=== PATIENT | female | born 1950 | race Caucasian/White ===

== ENCOUNTER 2021-07-13 16:03 | Inpatient (IN) | payer OTHER, BC ==
[2021-07-13] MEDS ORDERED: SODIUM CHLORIDE 0.9% 500 ML INFUS.BAG IV ONE ×2 (16:41→17:51)
[2021-07-13 16:52] LABS: BASO % 1.1 % (0-2.0); EOS % 0.6 % (0-4.5); HEMATOCRIT 40.6 % (32.4-45.2); HEMOGLOBIN 14.3 GM/dL (10.7-15.3); LYMPH % 24.7 % (8-40); MCH 31.6 pg (25.7-33.7); MCHC 35.2 g/dl (32.0-36.0); MEAN CELL VOLUME 89.9 fl (80-96); MEAN PLT VOLUME 7.8 fl (7.5-11.1); MONO % 6.9 % (3.8-10.2); NEUT % 66.7 % (42.8-82.8); PLATELET COUNT 408 10^3/uL (134-434); RBC 4.52 M/mm3 (3.60-5.2); RDW 14.1 % (11.6-15.6); WHITE BLOOD COUNT 9.8 K/mm3 (4.0-10.0)
[2021-07-13 17:13] LABS: CHLORIDE 86 mmol/L (98-107); SODIUM 135 mmol/L (136-145)
[2021-07-13 17:15] LABS: ALBUMIN 3.9 g/dl (3.4-5.0); BLOOD UREA NITROGEN 23.8 mg/dL (7-18); CALCIUM 7.4 mg/dL (8.5-10.1); CO2 37 mmol/L (21-32); GLUCOSE,RANDOM 134 mg/dL (74-106)
[2021-07-13 17:17] LABS: CREATININE 1.9 mg/dL (0.55-1.3); SGOT/AST 79 U/L (15-37); SGPT/ALT 110 U/L (13-61)
[2021-07-13 17:20] LABS: BILIRUBIN,TOTAL 0.6 mg/dL (0.2-1)
[2021-07-13 17:21] LABS: ALK PHOS 101 U/L (45-117)
[2021-07-13 17:23] LABS: N-TERMINAL BNP 699.1 pg/ml (5-125)
[2021-07-13 17:26] LABS: ANION GAP 12 MMOL/L (8-16)
[2021-07-13] MEDS ORDERED: POTASSIUM CHLORIDE TABS 20 MEQ TABLET.ER (FP) PO ONE ×4 (17:27→23:04)
[2021-07-13] MEDS ORDERED: KCL 10 MEQ IVPB 10 MEQ/100 ML INFUS.BAG IVPB ONE ×3 (17:29→19:38)
[2021-07-13] MEDS ORDERED: MAGNESIUM SULF 50% (8.12 MEQ/2 ML-1 GM VIAL) IVPB ONE (17:31)
[2021-07-13] MEDS: KCL 10 MEQ IVPB 10 MEQ/100 ML INFUS.BAG IVPB SCH ×3 (17:36→20:26)
[2021-07-13] MEDS ORDERED: ONDANSETRON 4 MG/2 ML VIAL IVPUSH ONE (17:53)
[2021-07-13] MEDS ORDERED: ONDANSETRON 4 MG/2 ML VIAL ONE (17:55)
[2021-07-13 20:34] LABS: CHLORIDE 89 mmol/L (98-107); SODIUM 135 mmol/L (136-145)
[2021-07-13 20:36] LABS: CALCIUM 7.1 mg/dL (8.5-10.1)
[2021-07-13 20:37] LABS: BLOOD UREA NITROGEN 23.5 mg/dL (7-18); CO2 33 mmol/L (21-32); GLUCOSE,RANDOM 115 mg/dL (74-106)
[2021-07-13 20:40] LABS: CREATININE 1.8 mg/dL (0.55-1.3)
[2021-07-13 20:52] LABS: EPI CELLS 31 /uL (0-25.1); HYALINE CASTS 8 /uL (0-3.1); URINE APPEARANCE CLEAR; URINE BACTERIA 96 /uL (0-1359); URINE BILIRUBIN NEGATIVE (NEGATIVE); URINE COLOR YELLOW; URINE GLUCOSE (UA) NEGATIVE (NEGATIVE); URINE KETONE NEGATIVE (NEGATIVE); URINE LEUK ESTERASE 1+ (NEGATIVE); URINE NITRITE NEGATIVE (NEGATIVE); URINE PROTEIN NEGATIVE (NEGATIVE); URINE RBC 8 /uL (0-23.9); URINE UROBILINOGEN 0.2 mg/dL (0.2-1.0); URINE WBC 18 /uL (0-25.8)
[2021-07-13 21:27] LABS: ANION GAP 13 MMOL/L (8-16)
[2021-07-13] MEDS ORDERED: CALCIUM GLUCONATE 10% - 1,000 MG in SODIUM CHLORIDE 100 ML IVPB ONE (23:00)
[2021-07-13] MEDS ORDERED: HEPARIN NA (PORCINE) 5,000 UNITS/ML 1ML VIAL ONE (23:05)
[2021-07-13] MEDS ORDERED: CALCIUM GLUCONATE 10% - 1,000 MG/10 ML VIAL ONE (23:05)
[2021-07-13 23:17] LABS: PHOSPHOROUS 4.7 mg/dL (2.5-4.9)
[2021-07-13] MEDS: HEPARIN NA (PORCINE) 5,000 UNITS/ML 1ML VIAL SQ SCH (23:26)
[2021-07-14] MEDS: KCL 10 MEQ IVPB 10 MEQ/100 ML INFUS.BAG IVPB SCH ×6 (00:51→21:58)
[2021-07-14] MEDS ORDERED: POTASSIUM CHLORIDE TABS 20 MEQ TABLET.ER (FP) PO ONE (01:52)
[2021-07-14] MEDS ORDERED: MECLIZINE HCL 25 MG TABLET (FP) PO PRN (02:08)
[2021-07-14] MEDS: HEPARIN NA (PORCINE) 5,000 UNITS/ML 1ML VIAL SQ SCH ×3 (06:23→21:58)
[2021-07-14 07:51] LABS: BASO % 0.7 % (0-2.0); EOS % 1.1 % (0-4.5); HEMATOCRIT 35.1 % (32.4-45.2); HEMOGLOBIN 12.2 GM/dL (10.7-15.3); LYMPH % 30.6 % (8-40); MCH 31.4 pg (25.7-33.7); MCHC 34.8 g/dl (32.0-36.0); MEAN CELL VOLUME 90.4 fl (80-96); MEAN PLT VOLUME 7.9 fl (7.5-11.1); MONO % 6.2 % (3.8-10.2); NEUT % 61.4 % (42.8-82.8); PLATELET COUNT 318 10^3/uL (134-434); RBC 3.88 M/mm3 (3.60-5.2); WHITE BLOOD COUNT 8.7 K/mm3 (4.0-10.0)
[2021-07-14 08:06] LABS: CHLORIDE 96 mmol/L (98-107); SODIUM 138 mmol/L (136-145)
[2021-07-14 08:12] LABS: ALBUMIN 3.3 g/dl (3.4-5.0); BLOOD UREA NITROGEN 20.9 mg/dL (7-18); CO2 31 mmol/L (21-32); GLUCOSE,RANDOM 101 mg/dL (74-106); MAGNESIUM 2.6 mg/dL (1.8-2.4)
[2021-07-14 08:13] LABS: CHOLESTEROL 152 mg/dL (50-200); TRIGLYCERIDES 113 mg/dL (0-150)
[2021-07-14 08:14] LABS: LDL CHOLESTEROL (ONLY SJRH) 93 mg/dL (5-100)
[2021-07-14 08:15] LABS: CREATININE 1.5 mg/dL (0.55-1.3); HDL CHOLESTEROL 40 mg/dL (40-60); SGOT/AST 50 U/L (15-37); SGPT/ALT 77 U/L (13-61); TOT PROT 6.8 g/dl (6.4-8.2)
[2021-07-14 08:17] LABS: ALK PHOS 81 U/L (45-117); BILIRUBIN,TOTAL 0.6 mg/dL (0.2-1)
[2021-07-14 08:28] LABS: ANION GAP 11 MMOL/L (8-16); CALCIUM 6.8 mg/dL (8.5-10.1)
[2021-07-14 08:29] LABS: INR 1.12 (0.83-1.09); PROTHROMBIN TIME (PATIENT) 12.9 SEC (9.7-13.0)
[2021-07-14] MEDS: FOLIC ACID 1 MG TABLET (FP) PO SCH (09:31)
[2021-07-14] MEDS: ASPIRIN COATED 81 MG TABLET.EC PO SCH (09:31)
[2021-07-14] MEDS: LEVOTHYROXINE NA 125 MCG TABLET (FP) PO SCH (09:31)
[2021-07-14] MEDS ORDERED: FOLIC ACID 0.8 MG PO SCH (10:00)
[2021-07-14] MEDS ORDERED: POTASSIUM CHLORIDE ORAL LIQUID 20 MEQ/15 ML PO SCH ×2 (10:00→23:00)
[2021-07-14] MEDS ORDERED: POTASSIUM CHLORIDE TABS 20 MEQ TABLET.ER (FP) PO SCH ×2 (10:00)
[2021-07-14] MEDS: FLUTICASONE/SALMETEROL 100 MCG/50 MCG DISKUS IH SCH ×2 (12:19→22:37)
[2021-07-14 15:56] VITALS: BMI 27.8
[2021-07-14] MEDS ORDERED: CALCIUM GLUCONATE IN NACL 1 GM/50 ML BAG IVPB ONE (16:16)
[2021-07-14] MEDS ORDERED: POTASSIUM CHLORIDE ORAL LIQUID 20 MEQ/15 ML PO ONE ×2 (18:45→22:00)
[2021-07-14 21:59] LABS: CHLORIDE 99 mmol/L (98-107); SODIUM 140 mmol/L (136-145)
[2021-07-14 22:00] LABS: ANION GAP 8 MMOL/L (8-16); BLOOD UREA NITROGEN 20.4 mg/dL (7-18); CO2 33 mmol/L (21-32); GLUCOSE,RANDOM 136 mg/dL (74-106)
[2021-07-14] MEDS ORDERED: DOXEPIN HCL 10 MG CAPSULE PO SCH (22:00)
[2021-07-14] MEDS ORDERED: KCL 10 MEQ IVPB 10 MEQ/100 ML INFUS.BAG IVPB SCH (22:00)
[2021-07-14 22:04] LABS: CREATININE 1.6 mg/dL (0.55-1.3)
[2021-07-14 22:22] LABS: CALCIUM 6.8 mg/dL (8.5-10.1)
[2021-07-15] MEDS: POTASSIUM CHLORIDE ORAL LIQUID 20 MEQ/15 ML PO SCH ×3 (02:30→21:07)
[2021-07-15] MEDS: HEPARIN NA (PORCINE) 5,000 UNITS/ML 1ML VIAL SQ SCH ×3 (06:17→21:07)
[2021-07-15] MEDS: LEVOTHYROXINE NA 125 MCG TABLET (FP) PO SCH (06:17)
[2021-07-15 06:56] LABS: HEMATOCRIT 32.7 % (32.4-45.2); HEMOGLOBIN 11.4 GM/dL (10.7-15.3); MCHC 34.9 g/dl (32.0-36.0); MEAN CELL VOLUME 91.6 fl (80-96); MEAN PLT VOLUME 7.7 fl (7.5-11.1); PLATELET COUNT 283 10^3/uL (134-434); RBC 3.56 M/mm3 (3.60-5.2); RDW 14.6 % (11.6-15.6); WHITE BLOOD COUNT 7.1 K/mm3 (4.0-10.0)
[2021-07-15 07:07] LABS: CHLORIDE 103 mmol/L (98-107); SODIUM 141 mmol/L (136-145)
[2021-07-15 07:10] LABS: ANION GAP 8 MMOL/L (8-16); BLOOD UREA NITROGEN 20.8 mg/dL (7-18); CO2 31 mmol/L (21-32); GLUCOSE,RANDOM 126 mg/dL (74-106)
[2021-07-15 07:13] LABS: CREATININE 1.3 mg/dL (0.55-1.3)
[2021-07-15 07:18] LABS: CALCIUM 6.9 mg/dL (8.5-10.1)
[2021-07-15] MEDS ORDERED: CALCIUM GLUC IN NACL, ISO-OSM 1 GM/50 ML BAG IVPB ONE (09:00)
[2021-07-15] MEDS: FOLIC ACID 1 MG TABLET (FP) PO SCH (09:52)
[2021-07-15] MEDS: ASPIRIN COATED 81 MG TABLET.EC PO SCH (09:52)
[2021-07-15] MEDS ORDERED: POTASSIUM CHLORIDE ORAL LIQUID 20 MEQ/15 ML PO SCH (10:00)
[2021-07-15] MEDS: FLUTICASONE/SALMETEROL 100 MCG/50 MCG DISKUS IH SCH ×2 (12:22→21:07)
[2021-07-16] MEDS: LEVOTHYROXINE NA 125 MCG TABLET (FP) PO SCH (06:15)
[2021-07-16] MEDS: HEPARIN NA (PORCINE) 5,000 UNITS/ML 1ML VIAL SQ SCH ×2 (06:15→13:14)
[2021-07-16 07:38] LABS: HEMATOCRIT 31.2 % (32.4-45.2); HEMOGLOBIN 10.5 GM/dL (10.7-15.3); MCH 31.3 pg (25.7-33.7); MCHC 33.8 g/dl (32.0-36.0); MEAN CELL VOLUME 92.5 fl (80-96); MEAN PLT VOLUME 8.2 fl (7.5-11.1); PLATELET COUNT 291 10^3/uL (134-434); RBC 3.37 M/mm3 (3.60-5.2); RDW 14.6 % (11.6-15.6)
[2021-07-16 07:43] LABS: CHLORIDE 103 mmol/L (98-107); SODIUM 143 mmol/L (136-145)
[2021-07-16 07:45] LABS: ANION GAP 8 MMOL/L (8-16); CO2 31 mmol/L (21-32)
[2021-07-16 07:46] LABS: BLOOD UREA NITROGEN 13.3 mg/dL (7-18); GLUCOSE,RANDOM 106 mg/dL (74-106); MAGNESIUM 2.4 mg/dL (1.8-2.4)
[2021-07-16 07:49] LABS: CREATININE 1.1 mg/dL (0.55-1.3); PHOSPHOROUS 3.1 mg/dL (2.5-4.9)
[2021-07-16 07:57] LABS: CALCIUM 6.6 mg/dL (8.5-10.1)
[2021-07-16] MEDS: POTASSIUM CHLORIDE ORAL LIQUID 20 MEQ/15 ML PO SCH (09:39)
[2021-07-16] MEDS: FOLIC ACID 1 MG TABLET (FP) PO SCH (09:40)
[2021-07-16] MEDS: ASPIRIN COATED 81 MG TABLET.EC PO SCH (09:40)
[2021-07-16] MEDS: FLUTICASONE/SALMETEROL 100 MCG/50 MCG DISKUS IH SCH (09:40)
[2021-07-16] MEDS ORDERED: CALCIUM GLUC IN NACL, ISO-OSM 1 GM/50 ML BAG IVPB ONE (11:43)
[2021-07-16] MEDS: KCL 10 MEQ IVPB 10 MEQ/100 ML INFUS.BAG IVPB SCH ×2 (14:07→15:33)
[2021-07-16] MEDS ORDERED: POTASSIUM CHLORIDE ORAL LIQUID 20 MEQ/15 ML PO ONE (16:00)
[2021-07-16 18:11] VITALS: BP 128/74; PULSE 82; TEMP 98.1
== END 2021-07-16 18:40 | disposition home or self-care (01) | DRG 641 ==
LOC: JER 16:03 → JERBED 17:32 → J4W 23:33
PROVIDERS: ADMIT Internal Medicine; ATTEND Internal Medicine
DX: E83.51 Hypocalcemia (principal); I50.32 Chronic diastolic (congestive) heart failure; I13.0 Hypertensive heart and chronic kidney disease with heart failure and stage 1 through stage 4 chronic kidney disease, or unspecified chronic kidney disease; N17.9 Acute kidney failure, unspecified; I24.8 Other forms of acute ischemic heart disease; T50.1X5A Adverse effect of loop [high-ceiling] diuretics, initial encounter; I95.9 Hypotension, unspecified; E03.9 Hypothyroidism, unspecified; J45.909 Unspecified asthma, uncomplicated; N18.9 Chronic kidney disease, unspecified; E78.5 Hyperlipidemia, unspecified; R55 Syncope and collapse; R74.01 Elevation of levels of liver transaminase levels; E87.6 Hypokalemia; Y92.89 Other specified places as the place of occurrence of the external cause
CPT/HCPCS: 36415; 70450-TC; 71045-TC-FY; 76705-TC; 76775-TC; 80048; 80053; 80061; 81003; 82040; 82310; 82533; 82550; 82553; 82570; 83735; 83880; 83930; 83935; 83970; 84100; 84133; 84300; 84443; 84484; 84540; 85025; 85027; 85610; 86705; 86850; 86900; 86901; 87086; 87340; 87517; 87902; 93005; 93010; 93306-TC; 93880-TC; 97116-GP; 97162-GP; 99285-25; C9803-CS; J1644; U0003; U0005